=== PATIENT | female | born 1975 | race Caucasian/White ===

== ENCOUNTER 2024-01-22 13:09 | Emergency (ER) | payer OTHER ==
--- NOTE | 2024-01-22 13:49 | ED ---
Back Pain HPI - General Source: RN notes reviewed, old records reviewed Mode of arrival: ambulatory Limitations: no limitations <Juaquin Ferro - Last Filed: 01/22/24 13:48> <Mally Greenfield - Last Filed: 01/28/24 23:25> - General Stated Complaint: Low back pain,weakness Time Seen by Provider: 01/22/24 14:00 - History of Present Illness Initial Comments: 48 female presenting today for evaluation regards to severe low back pain hazel ent has felt like she has an elevated heart rate with recent pain down her lower back upper back and into her abdomen. No prior history of similar symptoms. Generalized body aches and pains as well possible fevers with note change in bowel habits diarrhea or dysuria (Juaquin Ferro) 48-year-old female who presents emergency department with multiple complaints. Patient states that she is having some chest discomfort which radiates into her back. Admits to palpitations. No difficulty breathing. States that the back pain is chronic for her and she takes Percocet. Patient is additionally supposed to be on other medications however recently moved to the area and does not have a primary care doctor. The only medication the patient continues to take is her Percocet. Patient is denying any abdominal pain. No changes in her bowel or bladder habits. No previous history of cardiac disease. No DVT or PE. No calf pain or swelling. No other alleviating, precipitating or modifying factors (Mally Greenfield) - Related Data Previous Rx's Medication Instructions Recorded Calcitonin Nasal [Fortical 1 spray NASAL DAILY #3.7 ml 01/22/24 (Miacalcin)] Cholecalciferol (Vitamin D3) 1,250 mcg PO WEEKLY #4 tab 01/22/24 [Vitamin D3 (1250 Mcg = 50,000 Iu)] Cyclobenzaprine [Flexeril] 10 mg PO TID PRN #30 tab 01/22/24 levETIRAcetam [Keppra] 1,000 mg PO TID #90 tab 01/22/24 Allergies Allergy/AdvReac Type Severity Reaction Status Date / Time cephalexin [From Keflex] AdvReac Anaphylaxis Verified 01/22/24 14:00 Review of Systems ROS Other: All systems not noted in ROS Statement are negative. <Juaquin Ferro - Last Filed: 01/22/24 13:48> ROS Other: All systems not noted in ROS Statement are negative. <Mally Greenfield Tonio - Last Filed: 01/28/24 23:25> ROS Statement: Those systems with pertinent positive or pertinent negative responses have been documented in the HPI. General Exam General appearance: alert, in no apparent distress Head exam: Present: atraumatic, normocephalic, normal inspection Eye exam: Present: normal appearance, PERRL, EOMI. Absent: scleral icterus, conjunctival injection, periorbital swelling ENT exam: Present: normal exam, mucous membranes moist Neck exam: Present: normal inspection. Absent: tenderness, meningismus, lymphadenopathy Respiratory exam: Present: normal lung sounds bilaterally. Absent: respiratory distress, wheezes, rales, rhonchi, stridor Cardiovascular Exam: Present: regular rate, normal rhythm, normal heart sounds. Absent: systolic murmur, diastolic murmur, rubs, gallop, clicks GI/Abdominal exam: Present: soft, normal bowel sounds. Absent: distended, t enderness, guarding, rebound, rigid Extremities exam: Present: normal inspection, full ROM, normal capillary refill. Absent: tenderness, pedal edema, joint swelling, calf tenderness Back exam: Present: normal inspection Neurological exam: Present: alert, oriented X3, CN II-XII intact Psychiatric exam: Present: normal affect, normal mood Skin exam: Present: warm, dry, intact, normal color. Absent: rash <Juaquin Ferro - Last Filed: 01/22/24 13:48> General appearance: alert, in no apparent distress Head exam: Present: atraumatic, normocephalic, normal inspection Eye exam: Present: normal appearance, PERRL, EOMI. Absent: scleral icterus, conjunctival injection, periorbital swelling ENT exam: Present: normal exam, mucous membranes moist Neck exam: Present: normal inspection. Absent: tenderness, meningismus, lymphadenopathy Respiratory exam: Present: normal lung sounds bilaterally. Absent: respiratory distress, wheezes, rales, rhonchi, stridor Cardiovascular Exam: Present: regular rate, normal rhythm, normal heart sounds. Absent: systolic murmur, diastolic murmur, rubs, gallop, clicks GI/Abdominal exam: Present: soft, normal bowel sounds. Absent: distended, tenderness, guarding, rebound, rigid Extremities exam: Present: normal inspection, full ROM, normal capillary refill. Absent: tenderness, pedal edema, joint swelling, calf tenderness Back exam: Present: normal inspection Neurological exam: Present: alert, oriented X3, CN II-XII intact Psychiatric exam: Present: normal affect, normal mood Skin exam: Present: warm, dry, intact, normal color. Absent: rash <Mally Greenfield - Last Filed: 01/28/24 23:25> Course <Juaquin Ferro - Last Filed: 01/22/24 13:48> Vital Signs 01/22/24 01/22/24 01/22/24 13:56 21:28 23:15 Temperature 98.1 F 97.8 F Pulse Rate 96 104 H 94 Respiratory 18 18 16 Rate Blood Pressure 114/82 144/87 140/93 O2 Sat by Pulse 96 99 100 Oximetry - Reevaluation(s) Reevaluation #1: 01/22/24 13:49 QN completed by myself Dr Ferro (Juaquin Ferro) Medical Decision Making - Lab Data Result diagrams: 01/22/24 16:53 01/22/24 16:53 <Mally Greenfield - Last Filed: 01/28/24 23:25> - Medical Decision Making Was pt. sent in by a medical professional or institution (, PA, LAST SCOURER, urgent c are, hospital, or usp...) When possible be specific @ -No Did you speak to anyone other than the patient for history (EMS, parent, family, police, friend...)? What history was obtained from this source @ -No Did you review nursing and triage notes (agree or disagree)? Why? @ -I reviewed and agree with nursing and triage notes Were old charts reviewed (outside hosp., previous admission, EMS record, old EKG, old radiological studies, urgent care reports/EKG's, usp records)? Report findings @ -No old charts were reviewed Differential Diagnosis (chest pain, altered mental status, abdominal pain women, abdominal pain men, vaginal bleeding, weakness, fever, dyspnea, syncope, headache, dizziness, GI bleed, back pain, seizure, CVA, palpatations, mental health, musculoskeletal)? @ -Differential Back Pain: Strain, zoster, cauda equina syndrome, epidural abscess, vertebral osteomyelitis, discitis, fracture, subluxation, disc herniation, DJD, spinal stenosis, dissection, AAA, pancreatitis, peptic ulcer disease, pyelonephritis, kidney stone, this is not meant to be an all-inclusive list. EKG interpreted by me (3pts min.). @ -Yes and demonstrates sinus tachycardia with a rate of 104. [place] interval 127. QRS 89. QTc of 387. No acute ST segment elevations or depressions X-rays interpreted by me (1pt min.). @ -None done CT interpreted by me (1pt min.). @ -Yes and demonstrates possible enteric adenitis U/S interpreted by me (1pt. min.). @ -None done What testing was considered but not performed or refused? (CT, X-rays, U/S, labs)? Why? @ -None What meds were considered but not given or refused? Why? @ -None Did you discuss the management of the patient with other professionals (professionals i.e. , PA, LAST SCOURER, lab, RT, psych nurse, psychiatric social worker, solutions manager, teacher, medical corps officer, case investigator)? Give summary @ -No Was smoking cessation discussed for >3mins.? @ -No Was critical care preformed (if so, how long)? @ -No Were there social determinants of health that impacted care today? How? (Homelessness, low income, unemployed, alcoholism, drug addiction, transportation, low edu. Level, literacy, decrease access to med. care, nursing home, rehab)? @ -No Was there de-escalation of care discussed even if they declined (Discuss DNR or withdrawal of care, Hospice)? DNR status @ -No What co-morbidities impacted this encounter? (DM, HTN, Smoking, COPD, CAD, Cancer, CVA, ARF, Chemo, Hep., AIDS, mental health diagnosis, sleep apnea, morbid obesity)? @ -Chronic back pain Was patient admitted / discharged? Hospital course, mention meds given and route, prescriptions, significant lab abnormalities, going to OR and other pertinent info. @ -Upon arrival patient seen and evaluated in the emergency department. Thorough history and physical exam was performed. Patient does have several random complaints which are addressed. Laboratory studies are reviewed. CT demonstrates signs concerning for mesenteric adenitis however patient does not have symptoms consistent with this. She does request that I refill all of her prescriptions. I did provide the patient with a month supply awaiting her primary care appointment. Recommended that they complete an echo, Holter monitoring and stress test. Return for any new or worsening symptoms. Patient was agreeable to this plan she was discharged in stable condition Undiagnosed new problem with uncertain prognosis? @ -Yes Drug Therapy requiring intensive monitoring for toxicity (Heparin, Nitro, Insul in, Cardizem)? @ -No Were any procedures done? @ -No Diagnosis/symptom? @ -Acute low back pain, acute palpitations Acute, or Chronic, or Acute on Chronic? @ -Acute on chronic Uncomplicated (without systemic symptoms) or Complicated (systemic symptoms)? @ -Complicated Side effects of treatment? @ -No Exacerbation, Progression, or Severe Exacerbation? @ -No Poses a threat to life or bodily function? How? (Chest pain, USA, SD, pneumonia, PE, COPD, DKA, ARF, appy, cholecystitis, CVA, Diverticulitis, Homicidal, Suicidal, threat to staff... and all critical care pts) @ -No (Mally Greenfield) - Lab Data Lab Results 01/22/24 01/22/24 01/22/24 Range/Units 16:53 16:53 16:53 WBC 10.6 (3.8-10.6) k/uL RBC 4.68 (3.80-5.40) m/uL Hgb 14.0 (11.4-16.0) gm/dL Hct 43.8 (34.0-46.0) % MCV 93.5 (80.0-100.0) fL MCH 29.9 (25.0-35.0) pg MCHC 31.9 (31.0-37.0) g/dL RDW 13.4 (11.5-15.5) % Plt Count 420 (150-450) k/uL MPV 7.1 Neutrophils % 47 % Lymphocytes % 46 % Monocytes % 4 % Eosinophils % 1 % Basophils % 1 % Neutrophils # 5.0 (1.3-7.7) k/uL Lymphocytes # 4.9 H (1.0-4.8) k/uL Monocytes # 0.4 (0-1.0) k/uL Eosinophils # 0.1 (0-0.7) k/uL Basophils # 0.1 (0-0.2) k/uL Sodium 140 (137-145) mmol/L Potassium 4.3 (3.5-5.1) mmol/L Chloride 106 (98-107) mmol/L Carbon Dioxide 20 L (22-30) mmol/L Anion Gap 14 mmol/L BUN 14 (7-17) mg/dL Creatinine 0.85 (0.52-1.04) mg/dL Est GFR (CKD-EPI)AfAm >90 (>60 ml/min/1.73 sqM) Est GFR (CKD-EPI)NonAf 81 (>60 ml/min/1.73 sqM) Glucose 94 (74-99) mg/dL Calcium 10.2 (8.4-10.2) mg/dL Total Bilirubin 0.6 (0.2-1.3) mg/dL AST 27 (14-36) U/L ALT 23 (4-34) U/L Alkaline Phosphatase 101 (38-126) U/L Troponin I (0.000-0.034) ng/mL Total Protein 8.9 H (6.3-8.2) g/dL Albumin 5.3 H (3.5-5.0) g/dL Amylase 49 (30-110) U/L Lipase 45 (23-300) U/L TSH 0.898 (0.465-4.680) mIU/L Urine Color Urine Appearance (Clear) Urine pH (5.0-8.0) Ur Specific [place] (1.001-1.035) Urine Protein (Negative) Urine Glucose (UA) (Negative) Urine Ketones (Negative) Urine Blood (Negative) Urine Nitrite (Negative) Urine Bilirubin (Negative) Urine Urobilinogen (<2.0) mg/dL Ur Leukocyte Esterase (Negative) Urine RBC (0-5) /hpf Urine WBC (0-5) /hpf Ur Squamous Epith Cells (0-4) /hpf Urine Bacteria (None) /hpf Hyaline Casts (0-2) /lpf Urine Mucus (None) /hpf 01/22/24 01/22/24 Range/Units 21:32 22:00 WBC (3.8-10.6) k/uL RBC (3.80-5.40) m/uL Hgb (11.4-16.0) gm/dL Hct (34.0-46.0) % MCV (80.0-100.0) fL MCH (25.0-35.0) pg MCHC (31.0-37.0) g/dL RDW (11.5-15.5) % Plt Count (150-450) k/uL MPV Neutrophils % % Lymphocytes % % Monocytes % % Eosinophils % % Basophils % % Neutrophils # (1.3-7.7) k/uL Lymphocytes # (1.0-4.8) k/uL Monocytes # (0-1.0) k/uL Eosinophils # (0-0.7) k/uL Basophils # (0-0.2) k/uL Sodium (137-145) mmol/L Potassium (3.5-5.1) mmol/L Chloride (98-107) mmol/L Carbon Dioxide (22-30) mmol/L Anion Gap mmol/L BUN (7-17) mg/dL Creatinine (0.52-1.04) mg/dL Est GFR (CKD-EPI)AfAm (>60 ml/min/1.73 sqM) Est GFR (CKD-EPI)NonAf (>60 ml/min/1.73 sqM) Glucose (74-99) mg/dL Calcium (8.4-10.2) mg/dL Total Bilirubin (0.2-1.3) mg/dL AST (14-36) U/L ALT (4-34) U/L Alkaline Phosphatase (38-126) U/L Troponin I <0.012 (0.000-0.034) ng/mL Total Protein (6.3-8.2) g/dL Albumin (3.5-5.0) g/dL Amylase (30-110) U/L Lipase (23-300) U/L TSH (0.465-4.680) mIU/L Urine Color Yellow Urine Appearance Clear (Clear) Urine pH 5.5 (5.0-8.0) Ur Specific [place] 1.029 (1.001-1.035) Urine Protein Trace H (Negative) Urine Glucose (UA) Negative (Negative) Urine Ketones 1+ H (Negative) Urine Blood Small H (Negative) Urine Nitrite Negative (Negative) Urine Bilirubin Negative (Negative) Urine Urobilinogen <2.0 (<2.0) mg/dL Ur Leukocyte Esterase Negative (Negative) Urine RBC 3 (0-5) /hpf Urine WBC <1 (0-5) /hpf Ur Squamous Epith Cells <1 (0-4) /hpf Urine Bacteria Rare H (None) /hpf Hyaline Casts 3 H (0-2) /lpf Urine Mucus Occasional H (None) /hpf Disposition <Juaquin Ferro [place] - Last Filed: 01/22/24 13:48> Is patient prescribed a controlled substance at d/c from ED?: No Time of Disposition: 23:01 <Jean PierreMally Tonio - Last Filed: 01/28/24 23:25> Clinical Impression: Back pain, Chest pain Disposition: HOME SELF-CARE Condition: Stable Instructions (If sedation given, give patient instructions): Chest Pain (ED) Additional Instructions: Please follow-up with your primary care doctor further testing to include a stress test and Holter monitor. Return for any new or worsening symptoms Prescriptions: Cyclobenzaprine [Flexeril] 10 mg PO TID PRN #30 tab PRN Reason: Muscle Spasm Calcitonin Nasal [Fortical (Miacalcin)] 1 spray NASAL DAILY #3.7 ml levETIRAcetam [Keppra] 1,000 mg PO TID #90 tab Cholecalciferol (Vitamin D3) [Vitamin D3 (1250 Mcg = 50,000 Iu)] 1,250 mcg PO WEEKLY #4 tab Referrals: None,Stated [Primary Care Provider] - 1-2 days Shin Coto MD [STAFF PHYSICIAN] - 1-2 days Madi Wong DO [STAFF PHYSICIAN] - 1-2 days Duy Milian MD [REFERRING] - 1-2 days
--- NOTE | 2024-01-22 16:26 | CT ---
EXAMINATION TYPE: CT abdomen pelvis wo con DATE OF EXAM: 01/22/2024 COMPARISON: None INDICATION: Lumbosacral pain x3wks. DLP: 990 mGycm, Automated exposure control for dose reduction was used. CONTRAST: 0 mL of Isovue 300. Study performed without Oral Contrast TECHNIQUE: Axial images were obtained from above the diaphragm to the pubic rami in the axial plane a t 5 mm thick sections. Reconstructed images are reviewed on the computer in the coronal plane. FINDINGS: Limited CT sections are obtained the lung bases. The lung bases are clear. CT ABDOMEN: Appears to be some mild inflammatory change within the posterior mid mesentery of the epi gastric region. A couple of lymph nodes are present. In the coronal plane there is a 1.2 cm lymph nod e which is enlarged. Consider mesenteric adenitis. Liver: Normal Spleen: Normal Pancreas: Normal Adrenal glands: The adrenal glands are normal. Gallbladder: Normal Kidneys: No masses are evident. No hydronephrosis is present. No cysts are present. No renal stone s are evident. Aorta: Minimal Vascular calcification is within the aorta. Inferior vena cava: Normal. CT PELVIS: Loops of bowel within the abdomen and pelvis are normal. This study without oral contrast limitin g Bowel evaluation. Appendix: Not clearly identified. No suspicious dilated tubular structure or inflammatory change is e vident. Urinary bladder: Normal. Genitourinary structures: Uterus and ovaries are not identified. Osseous structures: No suspicious lytic or sclerotic lesions. Lumbar vertebral body heights are prese rved. Disc heights appear preserved. No spinal canal stenosis is present. There is mild scoliosis pre sent. IMPRESSION: 1. Clinical consideration for some epigastric is enteric adenitis. 2. No suspicious lower lumbar spine abnormality to account for pain.
[2024-01-22 17:00] LABS: Basophils # (A) 0.1 k/uL (0-0.2); Basophils % (A) 1 %; Eosinophils # (A) 0.1 k/uL (0-0.7); Eosinophils % (A) 1 %; HCT 43.8 % (34.0-46.0); Lymphocytes # (A) 4.9 k/uL (1.0-4.8); Lymphocytes % (A) 46 %; MCH 29.9 pg (25.0-35.0); MCHC 31.9 g/dL (31.0-37.0); MCV 93.5 fL (80.0-100.0); Mean Platelet Volume 7.1; Monocytes # (A) 0.4 k/uL (0-1.0); Monocytes % (A) 4 %; Neutrophils % (A) 47 %; Platelet Count 420 k/uL (150-450); RBC 4.68 m/uL (3.80-5.40); RDW 13.4 % (11.5-15.5); WBC 10.6 k/uL (3.8-10.6)
[2024-01-22 17:15] LABS: ALT 23 U/L (4-34); AST 27 U/L (14-36); African American GFR (CKD) >90 (>60 ml/min/1.73 sqM); Albumin 5.3 g/dL (3.5-5.0); Alkaline Phosphatase 101 U/L (38-126); Amylase 49 U/L (30-110); Anion Gap 14 mmol/L; Blood Urea Nitrogen 14 mg/dL (7-17); Calcium 10.2 mg/dL (8.4-10.2); Carbon Dioxide 20 mmol/L (22-30); Chloride 106 mmol/L (98-107); Glucose 94 mg/dL (74-99); Lipase 45 U/L (23-300); Non-African American GFR(CKD) 81 (>60 ml/min/1.73 sqM); Potassium 4.3 mmol/L (3.5-5.1); Sodium 140 mmol/L (137-145); Total Bilirubin 0.6 mg/dL (0.2-1.3); Total Protein 8.9 g/dL (6.3-8.2)
[2024-01-22] MEDS: MORPHINE SULFATE 4 MG/ML SYRINGE IV STA (21:42)
[2024-01-22] MEDS: ONDANSETRON 4 MG/2 ML VIAL IVP STA (21:42)
[2024-01-22] MEDS: SODIUM CHLORIDE 0.9% 1,000 ML IV STA ×2 (21:42→22:07)
[2024-01-22 21:55] LABS: Appearance,Urine Clear (Clear); Bacteria,Urine Rare /hpf; Bilirubin,Urine Negative (Negative); Blood,Urine Small (Negative); Color,Urine Yellow; Glucose,Urine (UA) Negative (Negative); Hyaline Casts,Urine 3 /lpf (0-2); Ketones,Urine 1+ (Negative); Leukocyte Esterase,Urine Negative (Negative); Mucus,Urine Occasional /hpf; Nitrite,Urine Negative (Negative); PH, Urine 5.5 (5.0-8.0); Protein,Urine Trace (Negative); RBC,Urine 3 /hpf (0-5); Specific Gravity,Urine 1.029 (1.001-1.035); Squamous Epithelial Cell,Urine <1 /hpf (0-4); Urobilinogen,Urine <2.0 mg/dL (<2.0); WBC,Urine <1 /hpf (0-5)
[2024-01-22] MEDS: LIDOCAINE 4% PATCH TOPICAL ONE (22:02)
[2024-01-22] MEDS: KETOROLAC 15 MG/ML 1 ML VIAL IVP STA (22:04)
[2024-01-22 22:23] VITALS: TEMP 97.8
[2024-01-22 23:47] VITALS: BP 140/93; PULSE 94; RESP 16
== END 2024-01-22 23:15 | disposition home or self-care (01) ==
LOC: EC 13:09
DX: G89.29 Other chronic pain (principal); M54.50 Low back pain, unspecified; R07.89 Other chest pain; Z88.1 Allergy status to other antibiotic agents
CPT/HCPCS: 36415; 74176; 80053; 81001; 82150; 83690; 84443; 84484; 85025; 93005; 99285

== ENCOUNTER 2024-03-20 15:26 | Inpatient (IN) | payer MEDICAID, MEDICARE, OTHER ==
--- NOTE | 2024-03-20 16:25 | ED ---
General Adult HPI - General Chief complaint: Psychiatric Symptoms Stated complaint: fast heart rate, brock Time Seen by Provider: 03/20/24 15:48 Source: patient, RN notes reviewed, old records reviewed Mode of arrival: ambulatory Limitations: no limitations - History of Present Illness Initial comments: 48-year-old female presenting for mental health evaluation. History is difficult in this patient. She is complaining of greater than 1 year of being monitored and receiving electromagnetic pulsations from her neighbor. Patient is quite paranoid. She states she has physical complaints related to the electromagnetic pulses. Patient has been contacting the police repeatedly. No prior history of mental health diagnosis - Related Data Home Medications Medication Instructions Recorded Confirmed Atorvastatin [Lipitor] 40 mg PO HS 03/20/24 03/20/24 Calcitonin Nasal [Fortical 1 spr NASAL DAILY 03/20/24 03/20/24 (Miacalcin)] Capsaicin Cream [Trixaicin Cream] 1 applic TOPICAL DAILY PRN 03/20/24 03/20/24 Cyclobenzaprine [Flexeril] 10 mg PO TID 03/20/24 03/20/24 Gabapentin 600 mg PO BID 03/20/24 03/20/24 levETIRAcetam [Keppra] 1,000 mg PO BID@0900,1300 03/20/24 03/20/24 levETIRAcetam [Keppra] 1,500 mg PO HS 03/20/24 03/20/24 oxyCODONE-APAP 10-325MG [Percocet 1 tab PO QID 03/20/24 03/20/24 10-325 mg] Allergies Allergy/AdvReac Type Severity Reaction Status Date / Time cephalexin [From Keflex] Allergy Anaphylaxis Verified 03/20/24 18:11 Review of Systems ROS Statement: Those systems with pertinent positive or pertinent negative responses have been documented in the HPI. ROS Other: All systems not noted in ROS Statement are negative. Past Medical History Past Medical History: Asthma Additional Past Medical History / Comment(s): osteomylitis Past Surgical History: Appendectomy, Hysterectomy Past Psychological History: No Psychological Hx Reported Smoking Status: Current every day smoker Past Alcohol Use History: Rare Past Drug Use History: None Reported General Exam Limitations: no limitations General appearance: alert, anxious Head exam: Present: atraumatic, normocephalic ENT exam: Present: normal exam Neck exam: Present: normal inspection Respiratory exam: Present: normal lung sounds bilaterally. Absent: respiratory distress, wheezes Cardiovascular Exam: Present: regular rate, normal rhythm GI/Abdominal exam: Present: soft. Absent: distended Back exam: Present: normal inspection Neurological exam: Present: alert. Absent: motor sensory deficit Psychiatric exam: Present: anxious, other (Patient appears anxious, she is paranoid and has pressured speech) Skin exam: Present: warm, dry, intact Course Vital Signs 03/20/24 15:34 Temperature 97.8 F Pulse Rate 92 Respiratory 16 Rate Blood Pressure 122/89 O2 Sat by Pulse 98 Oximetry - Reevaluation(s) Reevaluation #1: 03/20/24 16:25 Cleared for EPS. Medical Decision Making - Medical Decision Making Was pt. sent in by a medical professional or institution (, KIMBERLY, FISCAL ACCOUNTANT, urgent care, hospital, or residential...) When possible be specific @ -No Did you speak to anyone other than the patient for history (EMS, parent, family, police, friend...)? What history was obtained from this source @ -No Did you review nursing and triage notes (agree or disagree)? Why? @ -I reviewed and agree with nursing and triage notes Were old charts reviewed (outside hosp., previous admission, EMS record, old EKG, old radiological studies, urgent care reports/EKG's, residential records)? Report findings @ -No old charts were reviewed Differential Mental Health Depression, anxiety, bipolar, psychosis, schizophrenia, borderline personality, situational depression, adjustment disorder, behavioral disorder, brain tumor, malingering, substance abuse, encephalopathy, medication reaction, dementia, hypothyroidism, degenerative neurologic disorder, lupus.... This is not meant to be all-inclusive list EKG interpreted by me (3pts min.). @Sinus rhythm rate of 78, AL interval 137, QRS duration 84, QTc [address] segment changes. X-rays interpreted by me (1pt min.). @ -None done CT interpreted by me (1pt min.). @ -None done U/S interpreted by me (1pt. min.). @ -None done What testing was considered but not performed or refused? (CT, X-rays, U/S, labs)? Why? @ -None What meds were considered but not given or refused? Why? @ -None Did you discuss the management of the patient with other professionals (professionals i.e. , PA, FISCAL ACCOUNTANT, lab, RT, psych nurse, social research assistant, dragline operator, teacher, jail officer, lining caser)? Give summary @ -No Was smoking cessation discussed for >3mins.? @ -No Was critical care preformed (if so, how long)? @ -No Were there social determinants of health that impacted care today? How? (Homelessness, low income, unemployed, alcoholism, drug addiction, transportation, low edu. Level, literacy, decrease access to med. care, care home, rehab)? @ -No Was there de-escalation of care discussed even if they declined (Discuss DNR or withdrawal of care, Hospice)? DNR status @ -No What co-morbidities impacted this encounter? (DM, HTN, Smoking, COPD, CAD, Cancer, CVA, ARF, Chemo, Hep., AIDS, mental health diagnosis, sleep apnea, morbid obesity)? @ -None Was patient admitted / discharged? Hospital course, mention meds given and route, prescriptions, significant lab abnormalities, going to OR and other pertinent info. @ -Has been medically cleared and evaluated by EPS. She is felt to require inpatient psychiatric care. I do agree with this assessment. I have completed a clinical CERT on this patient. Undiagnosed new problem with uncertain prognosis? @ -No Drug Therapy requiring intensive monitoring for toxicity (Heparin, Nitro, Insulin, Cardizem)? @ -No Were any procedures done? @ -No Diagnosis/symptom? @Acute psychosis Acute, or Chronic, or Acute on Chronic? @ -acute Uncomplicated (without systemic symptoms) or Complicated (systemic symptoms)? @ -Default Side effects of treatment? @ -No Exacerbation, Progression, or Severe Exacerbation? @ -No Poses a threat to life or bodily function? How? (Chest pain, USA, SD, pneumonia, PE, COPD, DKA, ARF, appy, cholecystitis, CVA, Diverticulitis, Homicidal, Suicidal, threat to staff... and all critical care pts) @ -Yes, inability to understand the need for treatment - Lab Data Lab Results 03/20/24 Range/Units 16:44 Urine Opiates Screen Not Detected (NotDetected) Ur Oxycodone Screen Detected H (NotDetected) Urine Methadone Screen Not Detected (NotDetected) Ur Barbiturates Screen Not Detected (NotDetected) U Tricyclic Antidepress Detected H (NotDetected) Ur Phencyclidine Scrn Not Detected (NotDetected) Ur Amphetamines Screen Not Detected (NotDetected) U Methamphetamines Scrn Not Detected (NotDetected) U Benzodiazepines Scrn Not Detected (NotDetected) Urine Cocaine Screen Not Detected (NotDetected) U Marijuana (THC) Screen Not Detected (NotDetected) Disposition Clinical Impression: Acute psychosis Disposition: ADMITTED IP TO THIS HOSP Condition: Stable Is patient prescribed a controlled substance at d/c from ED?: No Referrals: None,Stated [Primary Care Provider] - 1-2 days Time of Disposition: 19:03
[2024-03-20 17:40] LABS: Amphetamine Screen,Urine Not Detected (NotDetected); Barbiturate Screen,Urine Not Detected (NotDetected); Benzodiazepines Screen,Urine Not Detected (NotDetected); Cocaine Screen,Urine Not Detected (NotDetected); Methadone Screen, Urine Not Detected (NotDetected); Opiate Screen,Urine Not Detected (NotDetected); Oxycodone Screen, Urine Detected (NotDetected); Phencyclidine Screen,Urine Not Detected (NotDetected); Tricyclic Antidepressant,Urine Detected (NotDetected); Urn Cannabinoid Scrn Not Detected (NotDetected)
[2024-03-20] MEDS ORDERED: ACETAMINOPHEN TAB 325 MG TAB PO PRN (21:37)
[2024-03-20] MEDS ORDERED: MAG HYDROX/AL HYDROX/SIMETH 355 ML BOTTLE PO PRN (21:37)
[2024-03-20] MEDS ORDERED: MAGNESIUM HYDROXIDE 2,400 MG/30 ML CUP PO PRN (21:37)
[2024-03-20] MEDS ORDERED: LORazepam 2 MG/ML INJ IM PRN (21:39)
[2024-03-20] MEDS ORDERED: haloperidoL 5 MG TAB PO PRN (21:39)
[2024-03-20] MEDS ORDERED: HALOPERIDOL LACTATE 5 MG/ML 1 ML VIAL IM PRN (21:39)
[2024-03-20] MEDS: LORazepam 1 MG TAB PO PRN (23:18)
[2024-03-20] MEDS: oxyCODONE-APAP 10-325MG 1 EACH TAB PO PRN (23:18)
[2024-03-20] MEDS: GABAPENTIN 300 MG CAP PO SCH (23:18)
[2024-03-21] MEDS: levETIRAcetam 500 MG TAB PO SCH (08:44)
[2024-03-21] MEDS: NICOTINE 14MG/24HR PATCH TRANSDERM SCH (08:44)
[2024-03-21] MEDS: CALCITONIN 200 USP/1 NASAL SPRAY 3.7ML BTL NASAL SCH (08:44)
[2024-03-21] MEDS: CYCLOBENZAPRINE 10 MG TAB PO PRN (08:45)
[2024-03-21] MEDS ORDERED: GABAPENTIN 300 MG CAP PO SCH (09:00)
[2024-03-21] MEDS ORDERED: HALOPERIDOL LACTATE 5 MG/ML 1 ML VIAL IM PRN ×3 (09:21→09:28)
[2024-03-21] MEDS ORDERED: LORazepam 2 MG/ML INJ IM PRN (09:23)
[2024-03-21] MEDS ORDERED: haloperidoL 5 MG TAB PO PRN (09:30)
[2024-03-21 10:56] LABS: Basophils # (A) 0.1 k/uL (0-0.2); Basophils % (A) 1 %; Eosinophils # (A) 0.1 k/uL (0-0.7); Eosinophils % (A) 1 %; HCT 44.9 % (34.0-46.0); HGB 13.8 gm/dL (11.4-16.0); Lymphocytes % (A) 40 %; MCH 30.1 pg (25.0-35.0); MCHC 30.6 g/dL (31.0-37.0); MCV 98.1 fL (80.0-100.0); Mean Platelet Volume 7.2; Monocytes # (A) 0.5 k/uL (0-1.0); Monocytes % (A) 7 %; Neutrophils # (A) 3.9 k/uL (1.3-7.7); Neutrophils % (A) 51 %; Platelet Count 500 k/uL (150-450); RBC 4.58 m/uL (3.80-5.40); RDW 13.3 % (11.5-15.5); WBC 7.7 k/uL (3.8-10.6)
[2024-03-21 11:43] LABS: ALT 35 U/L (4-34); AST 47 U/L (14-36); African American GFR (CKD) >90 (>60 ml/min/1.73 sqM); Albumin 4.9 g/dL (3.5-5.0); Alkaline Phosphatase 67 U/L (38-126); Anion Gap 9 mmol/L; Blood Urea Nitrogen 14 mg/dL (7-17); Calcium 10.2 mg/dL (8.4-10.2); Carbon Dioxide 27 mmol/L (22-30); Chloride 105 mmol/L (98-107); Glucose 88 mg/dL (74-99); Non-African American GFR(CKD) 79 (>60 ml/min/1.73 sqM); Potassium 4.7 mmol/L (3.5-5.1); Sodium 141 mmol/L (137-145); Total Bilirubin 0.4 mg/dL (0.2-1.3); Total Protein 7.9 g/dL (6.3-8.2)
--- NOTE | 2024-03-21 14:37 | P.HP ---
Psychiatric H&P - . H&P Date: 03/21/24 History & Physical: Allergies Allergy/AdvReac Type Severity Reaction Status Date / Time cephalexin [From Keflex] Allergy Anaphylaxis Verified 03/20/24 18:11 Vital Signs Temp 97.7 F 03/21/24 00:01 Pulse 77 03/21/24 00:01 Resp 18 03/21/24 00:01 BP 137/88 03/21/24 00:01 Pulse Ox 97 03/21/24 00:01 FiO2 Intake & Output 03/20/24 03/21/24 03/21/24 18:59 06:59 18:59 Weight 77.111 kg 77.111 kg Laboratory Last Values WBC 7.7 k/uL (3.8-10.6) 03/21/24 10:13 RBC 4.58 m/uL (3.80-5.40) 03/21/24 10:13 Hgb 13.8 gm/dL (11.4-16.0) 03/21/24 10:13 Hct 44.9 % (34.0-46.0) 03/21/24 10:13 MCV 98.1 fL (80.0-100.0) 03/21/24 10:13 MCH 30.1 pg (25.0-35.0) 03/21/24 10:13 MCHC 30.6 g/dL (31.0-37.0) L 03/21/24 10:13 RDW 13.3 % (11.5-15.5) 03/21/24 10:13 Plt Count 500 k/uL (150-450) H 03/21/24 10:13 MPV 7.2 03/21/24 10:13 Neutrophils % 51 % 03/21/24 10:13 Lymphocytes % 40 % 03/21/24 10:13 Monocytes % 7 % 03/21/24 10:13 Eosinophils % 1 % 03/21/24 10:13 Basophils % 1 % 03/21/24 10:13 Neutrophils # 3.9 k/uL (1.3-7.7) 03/21/24 10:13 Lymphocytes # 3.0 k/uL (1.0-4.8) 03/21/24 10:13 Monocytes # 0.5 k/uL (0-1.0) 03/21/24 10:13 Eosinophils # 0.1 k/uL (0-0.7) 03/21/24 10:13 Basophils # 0.1 k/uL (0-0.2) 03/21/24 10:13 Sodium 141 mmol/L (137-145) 03/21/24 10:13 Potassium 4.7 mmol/L (3.5-5.1) 03/21/24 10:13 Chloride 105 mmol/L (98-107) 03/21/24 10:13 Carbon Dioxide 27 mmol/L (22-30) 03/21/24 10:13 Anion Gap 9 mmol/L 03/21/24 10:13 BUN 14 mg/dL (7-17) 03/21/24 10:13 Creatinine 0.87 mg/dL (0.52-1.04) 03/21/24 10:13 Est GFR (CKD-EPI)AfAm >90 (>60 ml/min/1.73 sqM) 03/21/24 10:13 Est GFR (CKD-EPI)NonAf 79 (>60 ml/min/1.73 sqM) 03/21/24 10:13 Glucose 88 mg/dL (74-99) 03/21/24 10:13 Calcium 10.2 mg/dL (8.4-10.2) 03/21/24 10:13 Total Bilirubin 0.4 mg/dL (0.2-1.3) 03/21/24 10:13 AST 47 U/L (14-36) H 03/21/24 10:13 ALT 35 U/L (4-34) H 03/21/24 10:13 Alkaline Phosphatase 67 U/L (38-126) 03/21/24 10:13 Total Protein 7.9 g/dL (6.3-8.2) 03/21/24 10:13 Albumin 4.9 g/dL (3.5-5.0) 03/21/24 10:13 TSH 0.945 mIU/L (0.465-4.680) 03/21/24 10:13 Urine Opiates Screen Not Detected (NotDetected) 03/20/24 16:44 Ur Oxycodone Screen Detected (NotDetected) H 03/20/24 16:44 Urine Methadone Screen Not Detected (NotDetected) 03/20/24 16:44 Ur Barbiturates Screen Not Detected (NotDetected) 03/20/24 16:44 U Tricyclic Antidepress Detected (NotDetected) H 03/20/24 16:44 Ur Phencyclidine Scrn Not Detected (NotDetected) 03/20/24 16:44 Ur Amphetamines Screen Not Detected (NotDetected) 03/20/24 16:44 U Methamphetamines Scrn Not Detected (NotDetected) 03/20/24 16:44 U Benzodiazepines Scrn Not Detected (NotDetected) 03/20/24 16:44 Urine Cocaine Screen Not Detected (NotDetected) 03/20/24 16:44 U Marijuana (THC) Screen Not Detected (NotDetected) 03/20/24 16:44 SARS-CoV-2 (PCR) Not Detected (Not Detectd) 03/20/24 18:25 03/21/24 14:35 Psychiatric Evaluation Identifying Data: Ms. Villela is 48 years old, single white female, who lives in [place], [place] Chief Complaint: My neighbor keeps zapping me History of Psychiatric Illness- The patient noted that her neighbor keeps zapping her last one month. The patient noted that she keeps calling police. She stated the police comes over but does not do anything. She thinks her wifi is being jammed. She also receives electromagnetic pulsing to affect her body. The patient sons senior commercial loan officer suggested to come here for help. He stated that the only way to find out is to put heart monitor to see, if the electromagnetic pulse is affecting her heart. The patient noted that this is the first time it happened to her. She has never been treated for psychiatric disorder in the past. The patient came her own. She was seen in the ER and then transferred to MHU. The patient is surprised why she is in a psychiatric mars. Past Psychiatric History: None, as per patient. Past Medication History: No h/o psychiatric medications. Leading questions: The patient denied Depression and Anxiety. Denied SI or HI. Denied symptoms consistent with psychosis Drugs and alcohol history: The patient denied. Tobacco use: Vapes nicotine. Past Medical history: Asthmatic, Osteomyelitis of rt shoulder, Seizure disorder Family History of Psychiatric Disorder: The patient denied. No h/o suicide or homicide. Social History and Family History: The patient was born and raised in [place], [place]. She moved here last year. She grew-up with three siblings. She finished [employer]. Her longest job was for 21 years with . She is unemployed at present. She has pension from and [facility]. She was for 10 years. She has one son 31 years old. OTC: Tylenol PM Allergies: Keflex Objective: MSE: Alert and attentive. Orientation times three Dressed and Groomed: Appropriately. Pleasant and cooperative. Psychomotor Activity: Normal. Speech: Normal in tone, quality, and quantity. Mood: Good. Affect: Anxious. SI or HI: None. Perceptual disturbance: None. Thought Content: No paranoid delusions. Thought Process: Normal. Cognition: Intact Judgment and Insight: Poor AIMS: Normal Labs: Available labs reviewed. Diagnosis: Delusional disorder Plan and Recommendations: Continue current Medications. Risperdal 0.5 mg po bid. Monitor MS and side effects of medications and adjust medications accordingly. Provide supportive psychotherapy and psychoeducation. The patient provided psychoeducation. The patient to attend mars Milieu. Medication Consent with explanation of risk/benefits and side effects: Explained and obtained.
[2024-03-21] MEDS: IBUPROFEN 600 MG TAB PO PRN (17:25)
[2024-03-21] MEDS: ATORVASTATIN 40 MG TAB PO SCH (20:00)
[2024-03-21] MEDS: risperiDONE 0.5 MG TAB PO SCH (20:00)
[2024-03-22 03:00] LABS: Chol/HDL Ratio 3.58 Ratio; LDL Cholesterol,Calculated 121.6 mg/dL (0.0-131.0); VLDL Calculation 17.46 mg/dL (5.00-40.00)
--- NOTE | 2024-03-22 12:40 | P.PN ---
Progress Note - Text Progress Note Date: 03/22/24 Follow-up Mediation Review Chief Complaint: I am doing fine Subjective: The patient noted that she has been doing fine. She still talks about her neighbor zapping her, and electromagnetic waves interfering with her heart and other parts of the body. She was also noted to be talking with staff about the food served at the restaurants having dog, cat and rat meat. The patient continues to have paranoid thoughts and obsessive thinking. The patient did take Risperdal last night and slept very deep. She refused it this morning fearing that it may keep sedated all day. She appeared in good spirits. Overall, patient is showing slight improvement. No side effects reported. The patient has been attending the groups. The participation is good. The interaction with staff and peers is good. The patient is partially compliant with treatment recommendations. She took her Risperdal last night. Leading questions: The patient denied Depression and Anxiety. Denied SI or HI. Denied symptoms consistent with psychosis Sleep and Appetite: Fine. Change in family/ living/job/financial/daily routine: No change. Change in medical condition: No change. Change in medications: No change. Side effects from Medications: None. Objective- MSE: Alert and attentive. Orientation times three. Dressed and Groomed: Appropriately. Pleasant and cooperative. Psychomotor Activity: Normal. Speech: Normal in tone, quality, and quantity. Mood: Good. Affect: appropriate to the mood. SI or HI: None. Perceptual disturbance: None. Thought Content: Continues to have paranoid delusions. Some Obsessive thinking noted. No other delusional thinking Thought Process: Normal. Cognition: Intact Judgment and Insight: Her operational judgement is good. Her insight in to illness is poor. AIMS: Normal. Labs: No new labs. Diagnosis: No change. Plan and Recommendations: Continue current Medications. Monitor MS and side effects of medications and adjust medications accordingly. Provide supportive psychotherapy. The patient to attend mars activities. CBC with Diff, CMP, TSH, Lipid Profile, HbA1c, EKG, Medication Consent with explanation of risk/benefits and side effects: Explained and obtained.
--- NOTE | 2024-03-22 15:38 | P.CONS ---
History of Present Illness - Reason for Consult Consult date: 03/22/24 - History of Present Illness 48 year old F with PMH of osteomyelitis, asthma, dyslipidemia, seizure disorder presents to the ED for mental health concerns. She is admitted to the mental health unit for further management of her symptoms. [facility] has been consulted for medical management of this patient. In the ED she underwent extensive evaluation. BP 122/89, HR 92, T 97.8F, RR 16, 98% on RA. CBC and CMP significant for MCHC 30.6, Plt 500, AST 47, ALT 35. TSH 0.945. A1c 5.8. UDS + oxycodone and TCA. COVID negative. EKG shows sinus rhythm with no ST-T wave changes. Lipid panel within normal limits. Patient was seen and examined. She is requesting Bengay or Lidocaine patch for her right shoulder. General: non toxic, no distress, appears at stated age Derm: warm, dry Head: atraumatic, normocephalic, symmetric Eyes: EOMI, no lid lag, anicteric sclera Mouth: no lip lesion, mucus membranes moist Cardiovascular: S1S2 reg, no murmur Lungs: CTA bilateral, no rhonchi, no rales , no accessory muscle use Ext: no gross muscle atrophy, no edema, no contractures Neuro: no focal neuro deficits, CN II-XII grossly intact Psych: Alert, oriented, appropriate affect Based on my assessment of this patient, this patient meets a high complexity level of care. Transaminitis: Likely due to statin. Obtain lipid panel. Thrombocytosis Seizure disorder: Keppra 1000 mg PO BID + 1500 mg PO QHS. HLD: Lipitor 40 mg PO QHS. Obtain lipid panel. Asthma not in acute exacerbation CODE STATUS: FULL CODE DVT Prophylaxis: Early ambulation GI Prophylaxis: Designated medical POA if patient is not able to make medical decisions for themselves: I have reviewed the following change consultant notes: ED note, Psyc consult I have reviewed the results of the following tests: As above I have ordered the following tests: As above I have discussed the care of this patient with the following independent historian: I have independently interpreted the following test below: EKG. I have discussed the management of this patient with the following physician: Past Medical History Past Medical History: Asthma Additional Past Medical History / Comment(s): osteomylitis History of Any Multi-Drug Resistant Organisms: None Reported Past Surgical History: Appendectomy, Hysterectomy Additional Past Surgical History / Comment(s): reports a right shoulder surgery several years ago from a crushed shoulder injury requiring metal plates. Smoking Status: Vaper Medications and Allergies Home Medications Medication Instructions Recorded Confirmed Type Atorvastatin [Lipitor] 40 mg PO HS 03/20/24 03/20/24 History Calcitonin Nasal [Fortical 1 spr NASAL DAILY 03/20/24 03/20/24 History (Miacalcin)] Capsaicin Cream [Trixaicin Cream] 1 applic TOPICAL DAILY PRN 03/20/24 03/20/24 History Cyclobenzaprine [Flexeril] 10 mg PO TID 03/20/24 03/20/24 History Gabapentin 600 mg PO BID 03/20/24 03/20/24 History levETIRAcetam [Keppra] 1,000 mg PO BID@0900,1300 03/20/24 03/20/24 History levETIRAcetam [Keppra] 1,500 mg PO HS 03/20/24 03/20/24 History oxyCODONE-APAP 10-325MG [Percocet 1 tab PO QID 03/20/24 03/20/24 History 10-325 mg] Allergies Allergy/AdvReac Type Severity Reaction Status Date / Time cephalexin [From Keflex] Allergy Anaphylaxis Verified 03/20/24 18:11 Results CBC & Chem 7: 03/21/24 10:13 03/21/24 10:13 Labs: Abnormal Lab Results - Last 24 Hours (Table) 03/21/24 Range/Units 10:13 Levetiracetam 68.2 H (3.0-60.0) ug/mL
[2024-03-22] MEDS: LIDOCAINE 4% PATCH TOPICAL SCH (16:01)
--- NOTE | 2024-03-23 18:53 | P.PN ---
Progress Note - Text Progress Note Date: 03/23/24 Interval History: Patient was seen wandering the hallways and was directable and agreeable to junito hartley with card writer hand in the office. Patient appears to have poor awareness of managing online accounts and is describing having a panic attack and hot flashes when she describes "electromagnetic pulse ". When asked about this further, patient begins to be tearful and states that she has been under a lot of stress recently due to her brother dying a year and half ago and due to having to place her son in senior care due to heavy substance use. She says that she has been keeping away from the neighbor that is bothersome to her. She believes that he has been hacking into her phone and into her granddaughter's phone. Outside of being unable to use her electronics properly, she also states that he does bother some things to her including slamming cabinet doors and revving up his car engine. she states that she does not want to be on Risperdal any longer because "I've never been on any psych meds". She denies any side effects but would not like to be continued on this. when discussing medications and to help improve anxiety, patient is uninterested and says that she would like to be able to experience the stress in her life because she does not feel it is causing any functional impairment to her. Patient is fairly functional and attempts to care for her mom. She admits to having trouble with sleep but otherwise says that her mood is "fine ". She was agreeable with being started on Seroquel At this time patient denies any suicidal or homicidal ideations, intent or plan. Patient denies any auditory, visual hallucinations and denies any paranoia or delusions. Patient denies any side effects from the medications. Mental Status Exam: Alert and attentive. Orientation times three Dressed and Groomed: Appropriately. Pleasant and cooperative. Psychomotor Activity: Normal. Speech: Normal in tone, quality, and quantity. Mood: Good. Affect: Anxious. SI or HI: None. Perceptual disturbance: None. Thought Content: No paranoid delusions. Thought Process: Normal. Cognition: Intact Judgment and Insight: Poor Assessment Delusional disorder Bereavement Anxiety disorder, unspecified Plan: -Patient continues to meet criteria for inpatient psychiatric admission for symptom stabilization and safety. -Medications: Start Seroquel 100 mg qHS for sleep and psychosis Stop Risperdal as patient is refusing d/t concerns about seizures despite education provided Outpatient f/u for therapy for delusions and anxiety -When necessary Ativan and Haldol for agitation/aggression. -NRT -[nicotine patch -SW on board for discharge planning. Encouraged the patient to participate in milieu.
[2024-03-23] MEDS: QUEtiapine 100 MG TAB PO SCH (20:28)
[2024-03-24 06:57] VITALS: RESP 16
[2024-03-24] MEDS ORDERED: METHYL SALICYLATE-MENTHOL OINT (3 OZ TUBE) TOPICAL PRN (17:00)
--- NOTE | 2024-03-24 17:00 | P.PN ---
Progress Note - Text Progress Note Date: 03/24/24 Interval History: Patient was seen wandering the hallways and was directable and agreeable to junito hartley with chief writer in the office. patient continues to be anxious today and discusses numerous events in her life that have occurred recently including and substance use disorders. She discusses feeling overwhelmed by all this. Yesterday while discussing this concern, she exhibited flushing, diaphoresis, and reported having palpitations. She had attributed this to a traumatic pulse previously. However, discussed with her the patient is likely having a panic attack. Today while discussing numerous overwhelming events, she also had another episode of acute anxiety. She was agreeable with being started on Prozac and attempt to prevent panic. She said that otherwise, her mood has been "good ". She denies any other concerns. She states that she has been sleeping relatively well with Seroquel and would like to be continued on this only when necessary. She endorses good appetite and fair energy. At this time patient denies any suicidal or homicidal ideations, intent or plan. Patient denies any auditory, visual hallucinations and denies any paranoia or delusions. Patient denies any side effects from the medications. Mental Status Exam: Alert and attentive. Orientation times three Dressed and Groomed: Appropriately. Pleasant and cooperative. Psychomotor Activity: Normal. Speech: Normal in tone, quality, and quantity. Mood: Good. Affect: Anxious. SI or HI: None. Perceptual disturbance: None. Thought Content: No paranoid delusions. Thought Process: Normal. Cognition: Intact Judgment and Insight: Poor Assessment Delusional disorder Bereavement Adjustment disorder with Anxiety Plan: -Patient continues to meet criteria for inpatient psychiatric admission for symptom stabilization and safety. -Medications: Continue Seroquel 100 mg qHS for sleep and psychosis Start Prozac 10 mg for anxiety Outpatient f/u for therapy for delusions and anxiety -When necessary Ativan and Haldol for agitation/aggression. -NRT -nicotine patch -SW on board for discharge planning. Encouraged the patient to participate in milieu.
[2024-03-25 07:31] VITALS: BP 125/80; PULSE 86; TEMP 97
[2024-03-25] MEDS: FLUoxetine HCL 10 MG CAP PO SCH (08:41)
--- NOTE | 2024-03-25 21:44 | P.DS ---
Providers Date of admission: 03/20/24 21:26 Expected date of discharge: 03/25/24 Attending physician: Bal Torres MD Consults: 03/20/24 21:37 Consult Physician Routine Consulting Provider: Liat Lal Consult Reason/Comments: H&P Do you want consulting provider notified?: Yes Primary care physician: Stated None - Discharge Diagnosis(es) (1) Delusional disorder, persecutory type Status: Acute Priority: High Hospital Course: Discharge Summary HPI: Identifying Data: Ms. Villela is 48 years old, single white female, who lives in [place], [place] Chief Complaint: My neighbor keeps zapping me History of Psychiatric Illness- The patient noted that her neighbor keeps za pping her last one month. The patient noted that she keeps calling police. She stated the police comes over but does not do anything. She thinks her wifi is being jammed. She also receives electromagnetic pulsing to affect her body. The patient sons fire management officer suggested to come here for help. He stated that the only way to find out is to put heart monitor to see, if the electromagnetic pulse is affecting her heart. The patient noted that this is the first time it happened to her. She has never been treated for psychiatric disorder in the past. The patient came her own. She was seen in the ER and then transferred to MHU. The patient is surprised why she is in a psychiatric mars. Past Psychiatric History: None, as per patient. Past Medication History: No h/o psychiatric medications. Leading questions: The patient denied Depression and Anxiety. Denied SI or HI. Denied symptoms consistent with psychosis Drugs and alcohol history: The patient denied. Tobacco use: Vapes nicotine. Past Medical history: Asthmatic, Osteomyelitis of rt shoulder, Seizure disorder Hospital Course: After admission, the patient was involved in pharmacotherapy, mars milieu, and individual psychodynamic psychotherapy. The patient was started on Risperdal0.5 mg po bid. Initially she refused to take any medications. The was encouraged to take medications to help her thinking and to reduce the stress. The patient took 2-3 dose of Risperdal and stopping stating that she sleeps a lot. She had acute anxiety episode over the weekend and got prescribed Seroquel 100 mg po qhs and Prozac for for anxiety attacks. Her Risperdal was stopped. She complaint of excessive sedation.. The dose was titrated to obtain the desire effects. The patient tolerated medications well without any side effects. The patient was also involved in mars activities. The patient attended the groups and participated well. The patient interacted with peers and staff well. The patient slowly started showing improvement. The hospital course was uneventful. The patient symptoms of depression, suicidal and homicidal ideations abated. The psychosis improved. The patient was stable to be discharged to out-patient care. The patient did not have any guns or weapons in possession at home. MSE: Alert and attentive. Orientation times three Dressed and Groomed: Appropriately. Pleasant and cooperative. Psychomotor Activity: Normal. Speech: Normal in tone, quality, and quantity. Mood: Good. Affect: Anxious. SI or HI: None. Perceptual disturbance: None. Thought Content: No paranoid delusions. Thought Process: Normal. Cognition: Intact Judgment and Insight: Poor AIMS: Normal Labs: Available labs reviewed. Diagnosis: Delusional disorder, R/O Partial complex seizures, R/O Conversion Disorder : Plan: The patient to be discharged today. The patient has attained good improvement since admission. He is stable to be followed as an outpatient. The patient is not suicidal or Homicidal. He does not pose any harm to self or others. The patient remains at a greater risk of self-harm or harm to others than general population on a chronic basis due to psychiatric illness and substance abuse. The patient will continue taking following medication post discharge. The importance of medication compliance and maintaining regular appointments at psychiatric out-pt and PCP clinic was explained and encouraged. The patient was also advised to seek alcohol counseling and attend AA/NA meetings. The understood and agreed with the recommendations. The patient was asked to seek out-pat follow with Neurology to R/O Partial complex seizures. cupola worker to arrange for and conduct family meeting to ensure safety upon discharge and answer any questions. The socially responsible investment adviser to arrange for patients follow-up appointments at [facility] for psychiatric care along with follow-up with PCP. The patient provided psychoeducation. Advised to call 911 or go to nearest ED or call this hospital in case of acute worsening of symptomatology, severe side effects or having suicidal, homicidal thoughts and feeling unsafe at home. Plan - Discharge Summary Discharge Rx Participant: Yes New Discharge Prescriptions: New Lidocaine 4% Patch 1 patch TOPICAL DAILY patch FLUoxetine HCL [PROzac] 10 mg PO DAILY 15 Days #15 cap QUEtiapine [SEROquel] 100 mg PO HS 15 Days #15 tab Continue levETIRAcetam [Keppra] 1,500 mg PO HS Gabapentin 600 mg PO BID Atorvastatin [Lipitor] 40 mg PO HS oxyCODONE-APAP 10-325MG [Percocet 10-325 mg] 1 tab PO QID Cyclobenzaprine [Flexeril] 10 mg PO TID levETIRAcetam [Keppra] 1,000 mg PO BID@0900,1300 Calcitonin Nasal [Fortical (Miacalcin)] 1 spr NASAL DAILY Capsaicin Cream [Trixaicin Cream] 1 applic TOPICAL DAILY PRN PRN Reason: Pain Discharge Medication List Atorvastatin [Lipitor] 40 mg PO HS 03/20/24 [History] Calcitonin Nasal [Fortical (Miacalcin)] 1 spr NASAL DAILY 03/20/24 [History] Capsaicin Cream [Trixaicin Cream] 1 applic TOPICAL DAILY PRN 03/20/24 [History] Cyclobenzaprine [Flexeril] 10 mg PO TID 03/20/24 [History] Gabapentin 600 mg PO BID 03/20/24 [History] levETIRAcetam [Keppra] 1,000 mg PO BID@0900,1300 03/20/24 [History] levETIRAcetam [Keppra] 1,500 mg PO HS 03/20/24 [History] oxyCODONE-APAP 10-325MG [Percocet 10-325 mg] 1 tab PO QID 03/20/24 [History] FLUoxetine HCL [PROzac] 10 mg PO DAILY 15 Days #15 cap 03/25/24 [Rx] Lidocaine 4% Patch 1 patch TOPICAL DAILY patch 03/25/24 [Rx] QUEtiapine [SEROquel] 100 mg PO HS 15 Days #15 tab 03/25/24 [Rx] Follow up Appointment(s)/Referral(s): [facility] [Outside] - 03/26/24 3:15 pm (Mary) [facility] [NON-STAFF] - 1 Week Patient Instructions/Handouts: Mood Disorders (DC), Generalized Anxiety Disorder (ED), Psychotic Disorder (DC) Activity/Diet/Wound Care/Special Instructions: Avoid the use of street drugs and alcohol. Take all medications as prescribed. When you are in need of refills on your medications, please contact your medical provider and/or outpatient psychiatrist/provider to have this done. Please go to your scheduled outpatient appointment for aftercare treatment. If symptoms return or become worse, call the crisis line at and/or go to the nearest emergency room for evaluation. National Suicide Hotline 563 Discharge Disposition: HOME SELF-CARE
== END 2024-03-25 14:07 | disposition home or self-care (01) | DRG 885 ==
LOC: EC 15:26 → 3MHU 21:26
PROVIDERS: ADMIT Psychiatry & Neurology Psychiatry; ATTEND Psychiatry & Neurology Psychiatry
DX: F22 Delusional disorders (principal); G40.909 Epilepsy, unspecified, not intractable, without status epilepticus; D75.839 Thrombocytosis, unspecified; J45.909 Unspecified asthma, uncomplicated; E78.5 Hyperlipidemia, unspecified; Z11.52 Encounter for screening for COVID-19; F41.0 Panic disorder [episodic paroxysmal anxiety]; F43.22 Adjustment disorder with anxiety; R74.01 Elevation of levels of liver transaminase levels; F17.290 Nicotine dependence, other tobacco product, uncomplicated; Z71.6 Tobacco abuse counseling; Z79.891 Long term (current) use of opiate analgesic; Z79.899 Other long term (current) drug therapy; Z56.0 Unemployment, unspecified; Z63.4 Disappearance and death of family member; Z88.1 Allergy status to other antibiotic agents
CPT/HCPCS: 80053; 80061; 80177; 80306; 82075; 83036; 84443; 85025; 87635; 93005; 99285

== ENCOUNTER 2024-05-15 21:38 | Inpatient (IN) | payer MEDICARE ==
[~2024-05-15 21:38] MED LIST: ACETAMINOPHEN TAB 325 MG TAB ONE; HEPARIN SODIUM,PORCINE 5,000 UNIT/ML 1 ML VIAL ONE; LORazepam 2 MG/ML INJ ONE; levETIRAcetam 500 MG TAB ONE
[2024-05-15] MEDS ORDERED: ACETAMINOPHEN TAB 325 MG TAB ONE (23:22)
[2024-05-16] MEDS ORDERED: NICOTINE 14MG/24HR PATCH TRANSDERM ONE (08:19)
[2024-05-16] MEDS ORDERED: levETIRAcetam 500 MG TAB ONE ×2 (08:19→18:42)
[2024-05-16] MEDS ORDERED: HYDROcodone/APAP 10-325MG 1 EACH TAB ONE (18:48)
[2024-05-16] MEDS ORDERED: GABAPENTIN 300 MG CAP ONE (20:02)
[2024-05-16] MEDS ORDERED: risperiDONE 0.5 MG TAB ONE (20:02)
[2024-05-16] MEDS ORDERED: CYCLOBENZAPRINE 10 MG TAB ONE (20:53)
[2024-05-17] MEDS ORDERED: risperiDONE 0.5 MG TAB ONE ×2 (08:26→21:18)
[2024-05-17] MEDS ORDERED: GABAPENTIN 300 MG CAP ONE ×2 (08:26→21:18)
[2024-05-17] MEDS ORDERED: FLUoxetine HCL 10 MG CAP ONE (08:26)
[2024-05-17] MEDS ORDERED: levETIRAcetam 500 MG TAB ONE ×2 (08:26→13:30)
[2024-05-17] MEDS ORDERED: NICOTINE 14MG/24HR PATCH TRANSDERM ONE (08:26)
[2024-05-17] MEDS ORDERED: oxyCODONE-APAP 10-325MG 1 EACH TAB ONE ×3 (08:56→21:19)
[2024-05-17] MEDS ORDERED: CYCLOBENZAPRINE 10 MG TAB ONE ×2 (13:30→21:18)
[2024-05-17] MEDS ORDERED: ACETAMINOPHEN TAB 325 MG TAB ONE (13:30)
[2024-05-18] MEDS ORDERED: GABAPENTIN 300 MG CAP ONE ×2 (08:03→20:15)
[2024-05-18] MEDS ORDERED: NICOTINE 14MG/24HR PATCH TRANSDERM ONE (08:03)
[2024-05-18] MEDS ORDERED: risperiDONE 0.5 MG TAB ONE (08:04)
[2024-05-18] MEDS ORDERED: FLUoxetine HCL 10 MG CAP ONE (08:04)
[2024-05-18] MEDS ORDERED: levETIRAcetam 500 MG TAB ONE (08:04)
[2024-05-18] MEDS ORDERED: HYDROcodone/APAP 10-325MG 1 EACH TAB ONE ×2 (08:39→14:21)
[2024-05-18] MEDS ORDERED: CYCLOBENZAPRINE 10 MG TAB ONE ×3 (08:39→21:09)
[2024-05-18] MEDS ORDERED: risperiDONE 1 MG TAB ONE (20:15)
[2024-05-18] MEDS ORDERED: oxyCODONE-APAP 10-325MG 1 EACH TAB ONE (21:10)
[2024-05-18] MEDS ORDERED: QUEtiapine 50 MG TAB ONE (22:06)
[2024-05-19] MEDS ORDERED: MAG HYDROX/AL HYDROX/SIMETH 30 ML CUP PO PRN
[2024-05-19] MEDS ORDERED: HALOPERIDOL LACTATE 5 MG/ML 1 ML VIAL IM PRN
[2024-05-19] MEDS ORDERED: LORazepam 2 MG/ML INJ IM PRN
[2024-05-19] MEDS ORDERED: FLUoxetine HCL 10 MG CAP ONE (08:41)
[2024-05-19] MEDS ORDERED: risperiDONE 0.5 MG TAB ONE (08:41)
[2024-05-19] MEDS ORDERED: NICOTINE 14MG/24HR PATCH TRANSDERM ONE (08:41)
[2024-05-19] MEDS ORDERED: GABAPENTIN 300 MG CAP ONE ×2 (08:41→20:35)
[2024-05-19] MEDS ORDERED: oxyCODONE-APAP 10-325MG 1 EACH TAB ONE ×3 (09:42→21:33)
[2024-05-19] MEDS ORDERED: CYCLOBENZAPRINE 10 MG TAB ONE ×3 (09:42→21:33)
[2024-05-19] MEDS: FLUoxetine HCL 10 MG CAP PO SCH (09:43)
[2024-05-19] MEDS: levETIRAcetam 500 MG TAB PO SCH ×2 (09:43→20:36)
[2024-05-19] MEDS: GABAPENTIN 300 MG CAP PO SCH (09:43)
[2024-05-19] MEDS: NICOTINE 14MG/24HR PATCH TRANSDERM SCH (09:43)
[2024-05-19] MEDS: oxyCODONE-APAP 10-325MG 1 EACH TAB PO PRN (09:43)
[2024-05-19] MEDS: CYCLOBENZAPRINE 10 MG TAB PO PRN (09:43)
[2024-05-19] MEDS: risperiDONE 0.5 MG TAB PO SCH (09:43)
--- NOTE | 2024-05-19 10:50 | P.PN ---
Progress Note - Text Progress Note Date: 05/19/24 Patient was seen and chart was reviewed and case discussed with nursing staff Patient reports that she is doing somewhat better She says that she is taking her medications as prescribed She denies any side effects on her current medications She denies any suicidal or homicidal ideations or plans Alert and attentive. Orientation times three. Dressed and Groomed: Appropriately. Casually dressed and groomed Pleasant and cooperative. Psychomotor Activity: Normal. Speech: Normal in tone, quality, and quantity. Mood: Blunted Affect: Blunted SI or HI: None. Perceptual disturbance: None. Thought Content: No paranoia or other delusional thinking noted. Thought Process: Normal. Cognition: Intact Judgment and Insight: Improving AIMS: Normal. Labs: No new labs. Plan and Recommendations: Continue current Medications. Monitor MS and side effects of medications and adjust medications accordingly. Provide supportive psychotherapy. The patient provided psychoeducation The patient to attend mars activities. Medication Consent with explanation of risk/benefits and side effects: Explained and obtained. Active Medications Generic Name Dose Route Start Last Admin Trade Name Freq PRN Reason Stop Dose Admin Acetaminophen 650 mg 05/19/24 00:00 Acetaminophen Tab 325 Mg Tab PO Q4H PRN Pain Al Hydroxide/Mg Hydroxide 30 ml 05/19/24 00:00 Mag Hydrox/Al Hydrox/Simeth 30 Ml Cup PO Q4HR PRN GI Upset Albuterol Sulfate 2 puff 05/19/24 00:00 Albuterol Inhaler 60 Puff/8 Gm Inhaler (Mhu) INHALATION RT-Q4H PRN Shortness Of Breath Cyclobenzaprine HCl 10 mg 05/19/24 00:00 05/19/24 09:43 Cyclobenzaprine 10 Mg Tab PO 10 mg TID PRN Administration Muscle Spasm Fluoxetine HCl 10 mg 05/19/24 09:00 05/19/24 09:43 Fluoxetine Hcl 10 Mg Cap PO 10 mg DAILY RADHA Administration Gabapentin 600 mg 05/19/24 09:00 05/19/24 09:43 Gabapentin 300 Mg Cap PO 600 mg BID RADHA Administration Haloperidol 5 mg 05/19/24 00:00 Haloperidol 5 Mg Tab PO Q6H PRN AGITATION/ PSYCHOSIS Haloperidol Lactate 5 mg 05/19/24 00:00 Haloperidol Lactate 5 Mg/Ml 1 Ml Vial IM Q6HR PRN Agitation or Acute Psychosis Hydroxyzine Pamoate 25 mg 05/19/24 00:00 Hydroxyzine Pamoate 25 Mg Cap PO QID PRN Anxiety Levetiracetam 1,000 mg 05/19/24 08:00 05/19/24 09:43 Levetiracetam 500 Mg Tab PO 1,000 mg BID@0800,1400 RADHA Administration Levetiracetam 1,500 mg 05/19/24 21:00 Levetiracetam 500 Mg Tab PO HS RADHA Lorazepam 1 mg 05/19/24 00:00 Lorazepam 1 Mg Tab PO Q6H PRN Anxiety Lorazepam 1 mg 05/19/24 00:00 Lorazepam 2 Mg/Ml Inj IM Q6HR PRN AGITATION Magnesium Hydroxide 2,400 mg 05/19/24 09:00 Magnesium Hydroxide 2,400 Mg/30 Ml Cup PO DAILY PRN Constipation Nicotine 1 patch 05/19/24 09:00 05/19/24 09:43 Nicotine 14mg/24hr Patch TRANSDERM 1 patch DAILY RADHA Administration Oxycodone/Acetaminophen 1 each 05/19/24 00:00 05/19/24 09:43 Oxycodone-Apap 10-325mg 1 Each Tab PO 1 each QID PRN Administration Pain Quetiapine Fumarate 50 mg 05/19/24 21:00 Quetiapine 50 Mg Tab PO HS PRN Insomnia Risperidone 0.5 mg 05/19/24 09:00 05/19/24 09:43 Risperidone 0.5 Mg Tab PO 0.5 mg DAILY RADHA Administration Risperidone 1 mg 05/19/24 21:00 Risperidone 1 Mg Tab PO HS RADHA
[2024-05-19] MEDS ORDERED: ACETAMINOPHEN TAB 325 MG TAB ONE (14:39)
[2024-05-19] MEDS: ACETAMINOPHEN TAB 325 MG TAB PO PRN (14:39)
[2024-05-19] MEDS ORDERED: risperiDONE 1 MG TAB ONE (21:33)
[2024-05-19] MEDS ORDERED: QUEtiapine 50 MG TAB ONE (21:33)
[2024-05-19] MEDS: risperiDONE 1 MG TAB PO SCH (21:34)
[2024-05-19] MEDS: QUEtiapine 50 MG TAB PO PRN (21:34)
[2024-05-20] MEDS ORDERED: NICOTINE 14MG/24HR PATCH TRANSDERM ONE (08:46)
[2024-05-20] MEDS ORDERED: GABAPENTIN 300 MG CAP ONE (08:46)
[2024-05-20] MEDS ORDERED: CYCLOBENZAPRINE 10 MG TAB ONE (08:46)
[2024-05-20] MEDS ORDERED: risperiDONE 0.5 MG TAB ONE (08:47)
[2024-05-20] MEDS ORDERED: oxyCODONE-APAP 10-325MG 1 EACH TAB ONE (08:47)
[2024-05-20] MEDS ORDERED: FLUoxetine HCL 10 MG CAP ONE (08:47)
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
[2024-05-20] MEDS: MAGNESIUM HYDROXIDE 2,400 MG/30 ML CUP PO PRN (19:40)
[2024-05-20] MEDS: risperiDONE 1 MG TAB PO SCH (21:06)
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
[2024-05-22] MEDS: risperiDONE 1 MG TAB PO SCH (20:23)
[2024-05-22] MEDS ORDERED: LIDOCAINE 4% PATCH TOPICAL ONE (22:10)
[2024-05-23] MEDS: LIDOCAINE 4% PATCH TOPICAL SCH (05:12)
[2024-05-23] MEDS ORDERED: LIDOCAINE 4% PATCH TOPICAL SCH (09:00)
[2024-05-23 11:41] VITALS: BMI 25.8
[2024-05-23] MEDS: LORazepam 1 MG TAB PO PRN (14:49)
--- NOTE | 2024-05-23 14:54 | P.PN ---
Progress Note - Text Progress Note Date: 05/23/24 Follow-up Med review. Subjective: C/C I am doing fine. The patient noted that medication is helping her. She is not worried about electromagnetic pulse, or her phone being hacked or her electronic were jammed. She denied getting any messages from TV or any electronic. She continues to worry about her neighbor. She was gently reassured and redirected. The patient calmed down. She requested to have Risperdal three times a day instead of bedtime. She denied any side effects. Will increase the dose to 3 mg in divided doses. The patient was explained risk benefits and side effects. The patient understood and agreed. Leading questions: The patient denied Depression and Anxiety. Denied SI or HI. Denied symptoms consistent with psychosis except paranoia. Objective Alert and attentive. Orientation times three. Dressed and Groomed: Appropriately. Pleasant and cooperative. Psychomotor Activity: Normal. Speech: Normal in tone, quality, and quantity. Mood: I am feeling better. Affect: Appropriate to the mood. SI or HI: None. Perceptual disturbance: None. Thought Content: The patient exhibits circumscribed paranoia around her neighbor. No other delusional thinking noted. Thought Process: Normal. Cognition: Intact Judgment and Insight: Fair. AIMS: Normal. Labs: No new labs. Plan and Recommendations: Continue current Medications. Risperdal 1mg po tid. Prozac 20 mg po daily. Monitor MS and side effects of medications and adjust medications accordingly. Provide supportive psychotherapy. The patient provided psychoeducation The patient to attend mars activities. Medication Consent with explanation of risk/benefits and side effects: Explained and obtained.
[2024-05-23] MEDS: risperiDONE 1 MG TAB PO SCH (17:30)
[2024-05-24] MEDS: FLUoxetine HCL 20 MG CAP PO SCH (08:51)
[2024-05-24] MEDS: hydrOXYzine pamoate 25 MG CAP PO PRN (11:18)
[2024-05-24] MEDS: haloperidoL 5 MG TAB PO PRN (12:19)
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
[2024-05-24 13:49] LABS: Basophils # (A) 0.1 k/uL (0-0.2); Basophils % (A) 1 %; Eosinophils # (A) 0.1 k/uL (0-0.7); Eosinophils % (A) 2 %; HCT 35.8 % (34.0-46.0); HGB 11.4 gm/dL (11.4-16.0); Hypochromasia Slight; Lymphocytes # (A) 3.5 k/uL (1.0-4.8); Lymphocytes % (A) 46 %; MCH 31.2 pg (25.0-35.0); MCHC 31.8 g/dL (31.0-37.0); MCV 98.1 fL (80.0-100.0); Mean Platelet Volume 7.2; Monocytes # (A) 0.6 k/uL (0-1.0); Monocytes % (A) 7 %; Neutrophils # (A) 3.2 k/uL (1.3-7.7); Neutrophils % (A) 42 %; Platelet Count 475 k/uL (150-450); RBC 3.65 m/uL (3.80-5.40); RDW 12.9 % (11.5-15.5); WBC 7.7 k/uL (3.8-10.6)
[2024-05-24 13:59] LABS: ALT 77 U/L (4-34); AST 50 U/L (14-36); African American GFR (CKD) 70 (>60 ml/min/1.73 sqM); Albumin 4.5 g/dL (3.5-5.0); Alkaline Phosphatase 58 U/L (38-126); Anion Gap 8 mmol/L; Blood Urea Nitrogen 24 mg/dL (7-17); Calcium 10.1 mg/dL (8.4-10.2); Carbon Dioxide 25 mmol/L (22-30); Chloride 104 mmol/L (98-107); Glucose 80 mg/dL (74-99); Non-African American GFR(CKD) 61 (>60 ml/min/1.73 sqM); Potassium 4.8 mmol/L (3.5-5.1); Sodium 137 mmol/L (137-145); Total Bilirubin 0.3 mg/dL (0.2-1.3); Total Protein 7.4 g/dL (6.3-8.2)
[2024-05-24] MEDS: risperiDONE 1 MG TAB PO SCH (20:12)
[2024-05-24] MEDS: risperiDONE 2 MG TAB PO SCH (20:12)
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
[2024-05-26] MEDS: CALCITONIN 200 USP/1 NASAL SPRAY 3.7ML BTL NASAL SCH (10:31)
[2024-05-26] MEDS: ALBUTEROL INHALER 60 PUFF/8 GM INHALER (MHU) INHALATION PRN (18:34)
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
[2024-05-27] MEDS: NICOTINE GUM (POLACRILEX) 2 MG GUM BUCCAL PRN (11:16)
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
[2024-05-28 08:36] VITALS: BP 96/70; PULSE 74; RESP 18; TEMP 97.2
--- NOTE | 2024-05-29 12:47 | P.DS ---
Providers Date of admission: 05/15/24 21:38 Expected date of discharge: 05/28/24 Attending physician: Bal Torres MD Consults: 05/18/24 15:37 Consult Physician Routine Consulting Provider: Sinan Quintero Consult Reason/Comments: medical management Do you want consulting provider notified?: Already Contacted Primary care physician: Stated None - Discharge Diagnosis(es) (1) Delusional disorder, persecutory type Status: Acute Priority: High Hospital Course: Discharge Summary HPI: The patient was admitted to the hospital with paranoid delusions. She was preoccupied with fear that her neighbor wants to harass her and constantly spying, listening, and messing with her electronics. She believed that he sends electromagnetic impulses to her electronics and jam them, hacks her phone, and listens to her conversation. She also believed that he can affect her heart rate. Cause damage to her skin with electromagnetic pulse. PPH: She had one psychiatric admission in the past with similar symptoms. Alcohol and drug History: H/O alcohol abuse in her 20s. PMH: Asthma, Seizure disorder. Hospital Course: After admission, the patient was involved in pharmacotherapy, mars milieu, and individual psychodynamic psychotherapy. The patient was started on Risperdal, Seroquel and Hydroxyzine. The dose was titrated to obtain the desire effects. The patient tolerated medications well without any side effects. The patient was also involved in mars activities. The patient attended the groups and participated well. The patient interacted with peers and staff well. The patient slowly started showing improvement. The hospital course was uneventful. The patient symptoms of depression, suicidal and homicidal ideations abated. The psychosis improved. The patient was stable to be discharged to out-patient care. The patient did not have any guns or weapons in possession at home. MSE: Alert and attentive. Orientation times three. Dressed and Groomed: Appropriately. Pleasant and cooperative. Psychomotor Activity: Normal. Speech: Normal in tone, quality, and quantity. Mood: Sad and anxious. Affect: Sad, nervous, fearful. The patient cried few times during this evaluation. SI or HI: None. Perceptual disturbance: Hearing voices, Thought Content: Paranoid and grandiose delusions noted. thinking noted. Thought Process: Normal. Cognition: Intact Judgment and Insight: Good I Diagnosis: Persecutory Paranoid Disorder Plan: The patient to be discharged today. The patient has attained good improvement since admission. He is stable to be followed as an outpatient. The patient is not suicidal or Homicidal. He does not pose any harm to self or others. The patient remains at a greater risk of self-harm or harm to others than general population on a chronic basis due to psychiatric illness and substance abuse. The patient will continue taking following medication post discharge. The importance of medication compliance and maintaining regular appointments at psychiatric out-pt and PCP clinic was explained and encouraged. The patient was also advised to seek alcohol counseling and attend AA/NA meetings. The understood and agreed with the recommendations. wine cellar worker to arrange for and conduct family meeting to ensure safety upon discharge and answer any questions. The renal social worker to arrange for patients follow-up appointments at [facility] for psychiatric care along with follow-up with PCP. The patient provided psychoeducation. Advised to call 911 or go to nearest ED or call this hospital in case of acute worsening of symptomatology, severe side effects or having suicidal, homicidal thoughts and feeling unsafe at home. Patient Condition at Discharge: Stable Plan - Discharge Summary New Discharge Prescriptions: New QUEtiapine [SEROquel] 50 mg PO HS PRN 15 Days #15 tab PRN Reason: Insomnia hydrOXYzine pamoate [Vistaril] 25 mg PO QID PRN 14 Days #45 cap PRN Reason: Anxiety Nicotine Gum (Polacrilex) [Nicorette] 2 mg BUCCAL Q4HR PRN 7 Days #1 pieceofgum PRN Reason: Nicotine Cravings FLUoxetine HCL [PROzac] 20 mg PO DAILY 15 Days #15 cap risperiDONE [RisperDAL] 1 mg PO BID 15 Days #30 tab risperiDONE [RisperDAL] 2 mg PO HS 15 Days #15 tab Albuterol Inhaler [Ventolin Hfa Inhaler] 2 puff INHALATION RT-Q4H PRN 30 Days #1 each PRN Reason: Shortness Of Breath Continue Gabapentin 600 mg PO BID oxyCODONE-APAP 10-325MG [Percocet 10-325 mg] 1 tab PO QID Cyclobenzaprine [Flexeril] 10 mg PO TID levETIRAcetam [Keppra] 1,500 mg PO HS 15 Days #45 tab Calcitonin Nasal [Fortical (Miacalcin)] 1 spr NASAL DAILY Capsaicin Cream [Trixaicin Cream] 1 applic TOPICAL DAILY PRN PRN Reason: Pain Lidocaine 4% Patch 1 patch TOPICAL DAILY patch levETIRAcetam [Keppra] 1,000 mg PO BID@0900,1300 15 Days #30 tab Atorvastatin [Lipitor] 40 mg PO HS 15 Days #15 tab Discontinued FLUoxetine HCL [PROzac] 10 mg PO DAILY 15 Days #15 cap QUEtiapine [SEROquel] 100 mg PO HS 15 Days #15 tab Discharge Medication List Calcitonin Nasal [Fortical (Miacalcin)] 1 spr NASAL DAILY 03/20/24 [History] Capsaicin Cream [Trixaicin Cream] 1 applic TOPICAL DAILY PRN 03/20/24 [History] Cyclobenzaprine [Flexeril] 10 mg PO TID 03/20/24 [History] Gabapentin 600 mg PO BID 03/20/24 [History] oxyCODONE-APAP 10-325MG [Percocet 10-325 mg] 1 tab PO QID 03/20/24 [History] Lidocaine 4% Patch 1 patch TOPICAL DAILY patch 03/25/24 [Rx] Albuterol Inhaler [Ventolin Hfa Inhaler] 2 puff INHALATION RT-Q4H PRN 30 Days #1 each 05/28/24 [Rx] Atorvastatin [Lipitor] 40 mg PO HS 15 Days #15 tab 05/28/24 [Rx] FLUoxetine HCL [PROzac] 20 mg PO DAILY 15 Days #15 cap 05/28/24 [Rx] Nicotine Gum (Polacrilex) [Nicorette] 2 mg BUCCAL Q4HR PRN 7 Days #1 pieceofgum 05/28/24 [Rx] QUEtiapine [SEROquel] 50 mg PO HS PRN 15 Days #15 tab 05/28/24 [Rx] hydrOXYzine pamoate [Vistaril] 25 mg PO QID PRN 14 Days #45 cap 05/28/24 [Rx] levETIRAcetam [Keppra] 1,000 mg PO BID@0900,1300 15 Days #30 tab 05/28/24 [Rx] levETIRAcetam [Keppra] 1,500 mg PO HS 15 Days #45 tab 05/28/24 [Rx] risperiDONE [RisperDAL] 1 mg PO BID 15 Days #30 tab 05/28/24 [Rx] risperiDONE [RisperDAL] 2 mg PO HS 15 Days #15 tab 05/28/24 [Rx] Follow up Appointment(s)/Referral(s): [facility] [Outside] - 05/30/24 2:00 pm (05-30-24 at 2:00 with Jean Paul Hendrickson 06-05-24 at 1:[address] Jiang ) [facility] - 1 Week Patient Instructions/Handouts: Bipolar Disorder (DC), Psychotic Disorder (DC) Activity/Diet/Wound Care/Special Instructions: Avoid the use of street drugs and alcohol. Take all medications as prescribed. When you are in need of refills on your medications, please contact your medical provider and/or outpatient psychiatrist/provider to have this done. Please go to your scheduled outpatient appointment for aftercare treatment. If symptoms return or become worse, call the crisis line at and/or go to the nearest emergency room for evaluation. National Suicide Hotline 698
--- NOTE | 2024-06-03 08:55 | CT ---
Patient: Heidy Villela Ordering Physician: Unknown, Unknown ID: [id number] Phone, Pager: Phone: N /A Pager: N/A : 12/05/1974 Age/Gender: 49Y, F Primary Location: N/A Procedure: CT brain wo con Stud y Date: 05/13/2024 8:13:34 PM EXAMINATION TYPE: CT brain wo con CT DLP: 2210 mGycm, Automated exposure control for dose reduction was used. DATE OF EXAM: 05/13/2024 8:41 PM COMPARISON: None. CLINICAL INDICATION: AMS TECHNIQUE: Brain: Axial CT images of the brain were obtained with coronal and sagittal reformats created and rev iewed. Contrast used: None. Oral contrast used: None. FINDINGS: Brain: Extra-axial spaces: No abnormal extra-axial fluid collections. Ventricular system: Within normal limits Cerebral parenchyma: No acute intraparenchymal hemorrhage or mass effect. The hernandez-white junction is well differentiated. Cerebellum: Unremarkable. Mass effect: No evidence of midline shift. Intracranial vasculature: Atherosclerotic calcifications of the intracranial vessels. Soft tissues: Normal. Calvarium/osseous structures: No depressed skull fracture. Bilateral nasal bone deformities correlate for acute fracture. Paranasal sinuses and mastoid air cells: Mild scattered paranasal sinus disease. Visualized orbits: Orbital contents are intact. IMPRESSION: 1. No acute intracranial process. 2. Bilateral nasal bone deformities correlate with pain for acute fracture.
--- NOTE | 2024-06-12 11:04 | US ---
Patient: Heidy Villela Ordering Physician: Unknown, Unknown ID: [id number] Phone, Pager: Phone: N/A Pager: N/A : 1975 Age/Gender: 48Y, O Primary Location: N/A Procedure: US renals and bladder Study Date: 05/14/2024 7:37:00 PM EXAMINATION TYPE: US renals and bladder DATE OF EXAM: 05/14/2024 COMPARISON: NONE CLINICAL INDICATION: HISTORY; PATIENT STATES BACK PAIN EXAM MEASUREMENTS: RIGHT KIDNEY: 9.4 X 4.4 X 5.8CM. APPEARS WNL BEST SEEN TODAY LEFT KIDNEY: 9.8 X 5,2 X 3.8CM. APPEARS WNL BEST SEEN TODAY. SLIGHTLY LIMITED DUE TO RIB SHADOWS. BLADDER: ANECHOIC. APPEARS WNL There is no evidence for hydronephrosis at this point in time. No nephrolithiasis is seen. No alex s are identified. The urinary bladder is anechoic. Right ureteral jet identified, the left is not vi sualized. IMPRESSION: No evidence for obstructive uropathy or renal calculus.
--- NOTE | 2024-06-24 15:41 | PN ---
PROGRESS NOTE The patient is in 316, bed 1. The patient reports that she has improved, but she feels somewhat anxious. She says that she is doing better. She said that she follows up with [facility] locally, but feels that the followup there and the treatment that she was getting previously was not sufficient and not adequate. She, however, said that she has no other choice, but to follow up there. The patient states that she feels that she is making good progress and feels that she may be ready to go home by Monday or Monday. MENTAL STATUS EXAMINATION: Reveals a young female, who currently appears in no acute distress. The patient is alert and oriented to time, place, and person. The patient is interactive. Affect to be improved. The patient denies any auditory or visual hallucinations. DIAGNOSTIC IMPRESSION: 1. Bipolar disorder, mixed type 2. 2. Personality disorder with borderline traits. PLAN: The patient at this time continues to remain progressing. Affect at this time appears to be improved. No agitation or aggression noted at this time. We will continue current care and support. Approximate length of stay would be 3 to 5 days. MMODL / IJN: [id number] /
== END 2024-05-28 14:43 | disposition home or self-care (01) | DRG 885 ==
LOC: 3MHU 21:38
PROVIDERS: ADMIT Psychiatry & Neurology Psychiatry; ATTEND Psychiatry & Neurology Psychiatry
DX: F22 Delusional disorders (principal); M62.82 Rhabdomyolysis; E87.20 Acidosis, unspecified; F39 Unspecified mood [affective] disorder; G40.909 Epilepsy, unspecified, not intractable, without status epilepticus; J45.909 Unspecified asthma, uncomplicated; Z79.899 Other long term (current) drug therapy; S02.2XXA Fracture of nasal bones, initial encounter for closed fracture; F10.11 Alcohol abuse, in remission; Z71.3 Dietary counseling and surveillance; Z60.2 Problems related to living alone; F45.9 Somatoform disorder, unspecified; E83.41 Hypermagnesemia; E87.6 Hypokalemia; R74.01 Elevation of levels of liver transaminase levels; Z79.891 Long term (current) use of opiate analgesic; Z88.1 Allergy status to other antibiotic agents
CPT/HCPCS: 70450; 76770; 80053; 82075; 83930; 83935; 84300; 85025; 87636; 99285